=== PATIENT | female | born 1995 | race Caucasian/White ===

== ENCOUNTER 2017-03-09 14:01 | Emergency (ER) | payer MEDICAID ==
[~2017-03-09] VITALS: Ht 154.9 cm; Wt 64.0 kg
[2017-03-09 15:07] VITALS: BP 121/77
== END 2017-03-09 17:00 | disposition left against medical advice (07) ==
LOC: ER 14:35
DX: R10.9 Unspecified abdominal pain (principal); Z53.21 Procedure and treatment not carried out due to patient leaving prior to being seen by health care provider
CPT/HCPCS: 81025

== ENCOUNTER 2018-01-01 15:17 | Observation (INO) | payer MEDICAID ==
[~2018-01-01] VITALS: Ht 162.6 cm; Wt 88.5 kg
[2018-01-01] MEDS ORDERED: FERR325T6 PO (15:47)
[2018-01-01] MEDS ORDERED: PNV1TABL76 PO (15:47)
== END 2018-01-01 19:10 | disposition home or self-care (01) ==
LOC: L&D 15:17
PROVIDERS: ADMIT Obstetrics & Gynecology; ATTEND Obstetrics & Gynecology
DX: O26.892 Other specified pregnancy related conditions, second trimester (principal); R10.30 Lower abdominal pain, unspecified; M54.5 Low back pain; O26.852 Spotting complicating pregnancy, second trimester; Z3A.27 27 weeks gestation of pregnancy
CPT/HCPCS: 99281; G0378

== ENCOUNTER 2018-01-26 19:41 | Observation (INO) | payer MEDICAID ==
[~2018-01-26] VITALS: Ht 162.6 cm; Wt 67.6 kg
[~2018-01-26 19:41] MED LIST: FERR325T6 PO; PNV1TABL76 PO
[2018-01-26] MEDS ORDERED: LACTATED RINGERS 1,000 ML IV SCH (20:30)
[2018-01-26 23:07] LABS: BASOPHILS % 0.3 % (0.0-2.0); EOSINOPHILS % 2.7 % (0.0-5.0); HEMATOCRIT. 30.1 % (36.0-48.0); HEMOGLOBIN. 10.2 g/dL (12.0-16.0); LYMPHOCYTES % 28.5 % (20.0-50.0); MEAN CORPUSCULAR HEMOGLOBIN 29.8 pg (28.0-32.0); MEAN CORPUSCULAR VOLUME 87.6 fL (81.0-99.0); MEAN PLATELET VOLUME 9.6 fl (7.4-10.4); NEUTROPHILS % 64.5 % (40.0-76.0); PLATELET 146 x1000/uL (130-400); RED BLOOD CELL COUNT 3.43 mill/uL (4.2-5.4); RED CELL DISTRIBUTION WIDTH 13.1 % (11.6-14.6)
== END 2018-01-26 23:55 | disposition home or self-care (01) ==
LOC: L&D 19:41
PROVIDERS: ADMIT Obstetrics & Gynecology; ATTEND Obstetrics & Gynecology
DX: O26.893 Other specified pregnancy related conditions, third trimester (principal); R10.9 Unspecified abdominal pain; O46.93 Antepartum hemorrhage, unspecified, third trimester; Z3A.31 31 weeks gestation of pregnancy
CPT/HCPCS: 36415; 76805; 76818; 85025; 96360; 96361; 99281; G0378; J7120

== ENCOUNTER 2018-03-12 21:54 | Observation (INO) | payer MEDICAID ==
[~2018-03-12] VITALS: Ht 162.6 cm; Wt 67.6 kg
[2018-03-12] MEDS ORDERED: ACETAMINOPHEN 500MG TABLET PO NR (22:35)
== END 2018-03-13 04:00 | disposition home or self-care (01) ==
LOC: L&D 21:54
PROVIDERS: ADMIT Specialist; ATTEND Specialist
DX: O26.893 Other specified pregnancy related conditions, third trimester (principal); R10.30 Lower abdominal pain, unspecified; Z3A.33 33 weeks gestation of pregnancy
CPT/HCPCS: 76805; 76818; G0378

== ENCOUNTER 2018-11-14 17:51 | Emergency (ER) | payer MEDICAID ==
[~2018-11-14] VITALS: Ht 157.5 cm; Wt 91.0 kg
[2018-11-14 17:55] VITALS: BP 115/73
== END 2018-11-14 19:01 | disposition left against medical advice (07) ==
LOC: ER 17:51
DX: Z53.21 Procedure and treatment not carried out due to patient leaving prior to being seen by health care provider (principal)

== ENCOUNTER 2019-09-17 19:45 | Observation (INO) | payer MEDICAID ==
[~2019-09-17] VITALS: Ht 162.6 cm; Wt 88.0 kg
[2019-09-17] MEDS ORDERED: DEXT 5%/LACTATED RINGERS 1,000 ML IV ONE (21:00)
[2019-09-17 21:36] LABS: CLARITY URINE CLEAR (CLEAR); COLOR URINE DK YELLOW (YELLOW); KETONES URINE NEGATIVE (NEGATIVE); LEUKOCYTE ESTERASE URINE 1+ (NEGATIVE); NITRITE URINE NEGATIVE (NEGATIVE); OCCULT BLOOD URINE NEGATIVE (NEGATIVE); PROTEIN URINE NEGATIVE (NEGATIVE); SPECIFIC GRAVITY URINE 1.034 (1.005-1.030)
[2019-09-17] MEDS ORDERED: CEFAZOLIN 2,000 MG in DEXT 5% WATER 100 ML IV SCH (22:15)
[2019-09-17] MEDS ORDERED: PREN1TAB23 PO (22:23)
[2019-09-17] MEDS ORDERED: FERR325T6 PO (22:23)
== END 2019-09-17 23:00 | disposition home or self-care (01) ==
LOC: 8 EST LDRP 19:45
PROVIDERS: ADMIT Obstetrics & Gynecology; ATTEND Obstetrics & Gynecology
DX: O62.9 Abnormality of forces of labor, unspecified (principal); Z3A.23 23 weeks gestation of pregnancy
CPT/HCPCS: 76805; 76830; 81003; 96365; 99281; G0378; J0690; J7060; 96360

== ENCOUNTER 2019-12-25 01:12 | Observation (INO) | payer MEDICAID ==
[~2019-12-25] VITALS: Ht 162.6 cm; Wt 104.3 kg
[~2019-12-25 01:12] MED LIST changes: -PNV1TABL76 PO; +PREN1TAB23 PO
[2019-12-25] MEDS ORDERED: PREN1TAB78 PO (01:51)
[2019-12-25 03:31] LABS: CLARITY URINE CLOUDY (CLEAR); COLOR URINE YELLOW (YELLOW); KETONES URINE NEGATIVE (NEGATIVE); LEUKOCYTE ESTERASE URINE 2+ (NEGATIVE); NITRITE URINE NEGATIVE (NEGATIVE); OCCULT BLOOD URINE NEGATIVE (NEGATIVE); PH URINE 6.5 (4.5-8.0); PROTEIN URINE NEGATIVE (NEGATIVE); SPECIFIC GRAVITY URINE 1.018 (1.005-1.030)
[2019-12-25] MEDS ORDERED: CEFAZOLIN 2,000 MG in DEXT 5% WATER 100 ML IV SCH (05:00)
== END 2019-12-25 04:50 | disposition home or self-care (01) ==
LOC: 8 EST LDRP 01:12
PROVIDERS: ADMIT Obstetrics & Gynecology; ATTEND Obstetrics & Gynecology
DX: O26.893 Other specified pregnancy related conditions, third trimester (principal); R10.2 Pelvic and perineal pain; Z3A.37 37 weeks gestation of pregnancy
CPT/HCPCS: 76805; 76817; 76818; 81003; 99281; G0378; J0690; J7060

== ENCOUNTER 2020-05-21 22:47 | Emergency (ER) | payer MEDICAID ==
[~2020-05-21] VITALS: Ht 162.6 cm; Wt 86.0 kg
[~2020-05-21 22:47] MED LIST changes: -PREN1TAB23 PO; +PREN1TAB78 PO
[2020-05-21 22:51] VITALS: BP 119/77
== END 2020-05-22 00:30 | disposition left against medical advice (07) ==
LOC: ER 22:47
DX: I49.9 Cardiac arrhythmia, unspecified (principal); Z53.21 Procedure and treatment not carried out due to patient leaving prior to being seen by health care provider
CPT/HCPCS: 93005